=== PATIENT | male | born 1965 | race Caucasian/White ===

== ENCOUNTER 2016-12-22 09:19 | Outpatient (CLI) ==
[2016-08-14 15:49] VITALS: BMI 30.4
--- NOTE | 2016-12-22 10:06 | DI ---
EXAM: RIGHT HAND, 3 VIEWS HISTORY: Arthralgia FINDINGS: No comparison. There is mild to moderate diffuse distal interphalangeal joint arthropath y, greater at the second digit. There is a poorly united or nonunited tuft fracture of the first di stal phalanx. Carpal bones are within normal limits. IMPRESSION: DIP osteoarthritis.
== END 2016-12-22 09:20 | disposition home or self-care (01) ==
LOC: RAD 09:19
PROVIDERS: ATTEND Family Medicine
DX: M25.50 Pain in unspecified joint (principal)